=== PATIENT | male | born 1955 | race Caucasian/White ===

== ENCOUNTER 2018-11-28 17:49 | Observation (INO) | payer MEDICARE ==
[~2018-11-28] VITALS: Ht 190.5 cm; Wt 146.9 kg
[~2018-11-28 17:49] MED LIST: METF500 PO
[2018-11-28 18:33] LABS: BASOPHILS ABSOLUTE AUTO 0.04 K/mm3 (0.00-0.23); BASOPHILS PERCENT AUTO 0 % (0-2); EOSINOPHILS PERCENT AUTO 1 % (0-6); Hematocrit 45.3 % (37.0-53.0); Hemoglobin 15.4 g/dL (13.5-17.5); IMMATURE GRAN ABSOLUTE AUTO 0.08 K/mm3 (0.00-0.10); IMMATURE GRAN PERCENT AUTO 1 % (0-1); LYMPHOCYTES ABSOLUTE AUTO 3.53 K/mm3 (0.84-5.20); LYMPHOCYTES PERCENT AUTO 28 % (21-46); MONOCYTES ABSOLUTE AUTO 1.05 K/mm3 (0.16-1.47); MONOCYTES PERCENT AUTO 8 % (4-13); Mean Corpuscular HGB 30.3 pg (26.0-34.0); Mean Corpuscular Volume 89 fL (80-100); Mean Platelet Volume 12.1 fL (9.1-12.4); NEUTROPHILS ABSOLUTE AUTO 7.63 K/mm3 (1.96-9.15); NEUTROPHILS PERCENT AUTO 62 % (41-73); Platelet Count 230 K/mm3 (150-400); RDW Coefficient Variation 14.9 % (11.7-14.2); RDW Standard Deviation 49.1 fL (35.1-46.3); Red Blood Cell Count 5.08 M/mm3 (4.30-5.90); White Blood Cell Count 12.43 K/mm3 (4.00-11.30)
[2018-11-28 18:56] LABS: Albumin, Blood 4.4 g/dL (3.4-5.0); Albumin/Globulin Ratio 1.4 (0.8-1.8); Beta-hydroxybutyrate 5.8 mg/dL (0.2-2.8); Bilirubin, Total 0.7 mg/dL (0.1-1.0); Bun/Creatinine Ratio 21.9 (12.0-20.0); Calcium, Blood 9.4 mg/dL (8.5-10.1); Creatinine, Blood 1.46 mg/dL (0.60-1.20); Globulin, Blood 3.2 g/dL (2.2-4.0); Potassium, Blood 3.9 mmol/L (3.5-5.5); Total Protein, Blood 7.6 g/dL (6.4-8.2)
[2018-11-28] MEDS ORDERED: JARDIANCE25 MG PO (23:45)
[2018-11-28] MEDS ORDERED: GLIP10ER PO (23:45)
[2018-11-28] MEDS ORDERED: Percocet 5-3251 EACH PO (23:45)
[2018-11-28] MEDS ORDERED: ELIQUIS5 MG PO (23:46)
[2018-11-28] MEDS ORDERED: LIRA0.6P (23:46)
[2018-11-28] MEDS ORDERED: ALLO100 PO (23:46)
[2018-11-28] MEDS ORDERED: PREG150 PO (23:46)
[2018-11-29] MEDS ORDERED: TORSE20 PO (01:22)
[2018-11-29] MEDS ORDERED: Pacerone100 MG PO (01:22)
--- NOTE | 2018-11-29 06:00 | NUR ---
SHIFT SUMMARY PT IN ROOM IN RECLINER SITTING UP. PT SLEPT FOR SHORT PERIOD OF TIME AFTER ARRIVAL. PT WORE CPAP AND TOLERATED WELL. NO ACUTE CHANGES IN STATUS SINCE ARRIVAL. AMIODARONE WAS INFUSING IN PIV AT 0.5MG/HR, CURRENTLY STOPPED D/T IV PAINFUL. 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 PT IS SLIGHTLY AGGITATED THIS AM, REPORTS "I WAS SUPPOSED TO GO CAMPING THIS WEEKENED, I DON'T WANT TO BE HERE". PT HAS BEEN EDUCATED ABOUT NEED TO CONTROL HR, HR INCREASES TO 130'S-150'S W/ EXERTION. RESP EVEN UNLBOARED ON RA W/ SATS >92%. PT IS INDEPENDENT IN ROOM, AND CALLS APPROPRIATELY FOR CORD MANAGMENT. CALL LIGHT IN REACH. AMIODARONE GTT WAS TITRATE TO 0.5MG/HR AT APROX 0440 THIS AM.
--- NOTE | 2018-11-29 07:48 | NUR ---
AM NOTE ASSUMED CARE OF PT APROX 0700, PT IS A&Ox4 AND IND IN THE ROOM. PT WAS ADMITTED FOR PROX AFIB RVR. PT IS ON AMNIO GTT AT 16.6 MLS/HR. MONITOR INTACT, AFIB IN THE 100'S BUT TACHS UP TO THE 120'S-140'S WITH ACTIVITY. PT'S VS ARE STABLE. L/S CLEAR T/O. BT PRESENT AND HYPERACTIVE, ABD IS SOFT AND NONTENDER TO PALP. 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
[2018-11-29 08:52] LABS: BASOPHILS ABSOLUTE AUTO 0.05 K/mm3 (0.00-0.23); BASOPHILS PERCENT AUTO 1 % (0-2); EOSINOPHILS ABSOLUTE AUTO 0.16 K/mm3 (0.00-0.68); EOSINOPHILS PERCENT AUTO 2 % (0-6); Hematocrit 43.7 % (37.0-53.0); Hemoglobin 14.1 g/dL (13.5-17.5); IMMATURE GRAN ABSOLUTE AUTO 0.04 K/mm3 (0.00-0.10); IMMATURE GRAN PERCENT AUTO 0 % (0-1); LYMPHOCYTES ABSOLUTE AUTO 3.08 K/mm3 (0.84-5.20); LYMPHOCYTES PERCENT AUTO 33 % (21-46); MONOCYTES PERCENT AUTO 11 % (4-13); Mean Corpuscular HGB 29.9 pg (26.0-34.0); Mean Corpuscular HGB Conc 32.3 g/dL (31.5-36.5); Mean Corpuscular Volume 93 fL (80-100); Mean Platelet Volume 12.2 fL (9.1-12.4); NEUTROPHILS ABSOLUTE AUTO 5.02 K/mm3 (1.96-9.15); NEUTROPHILS PERCENT AUTO 54 % (41-73); Platelet Count 195 K/mm3 (150-400); RDW Coefficient Variation 15.1 % (11.7-14.2); Red Blood Cell Count 4.71 M/mm3 (4.30-5.90); White Blood Cell Count 9.35 K/mm3 (4.00-11.30)
[2018-11-29 09:08] LABS: Albumin, Blood 3.9 g/dL (3.4-5.0); Anion Gap 5 mmol/L (6-16); Blood Urea Nitrogen 27 mg/dL (8-24); Bun/Creatinine Ratio 22.1 (12.0-20.0); CO2, Blood 27 mmol/L (21-32); Calcium, Blood 8.5 mg/dL (8.5-10.1); Chloride, Blood 108 mmol/L (98-108); Creatinine, Blood 1.22 mg/dL (0.60-1.20); Glomerular Filtration Rate >60 (60-); Glucose, Blood 192 mg/dL (70-99); Potassium, Blood 4.2 mmol/L (3.5-5.5); Sodium, Blood 140 mmol/L (136-145)
--- NOTE | 2018-11-29 14:34 | NUR ---
Patient is lying in bed and alert. Patient is vocalizing his frustrations about his heart issues and how the problems never occur at an opportune time. Patient states that he would love to go home now but understands the process. I listen to patient, explore patient's belief system, provide pastoral school counsellor and provide prayer. Patient responds well and voices appreciation for the parayer.
--- NOTE | 2018-11-29 14:48 | NUR ---
1432: PT CONVERTED TO SINUS RHYTHM, HR [id number]. PT VERY EAGER TO GO HOME. DR LOZADA NOTIFIED AND STATES SHE WILL PLACE DISCHARGE ORDERS.
--- NOTE | 2018-11-29 15:01 | NUR ---
PT UPDATE... AT 1439 PT CONVERTED FROM AFIB TO NSR IN THE 60'S. PT'S VS STABLE. PROVIDER NOTIFED AND D/C ORDERS OBTAINED. WILL CONTINUE TO MONITOR. N
[2018-11-29] MEDS ORDERED: CARV3.125 PO (16:39)
== END 2018-11-29 17:25 | disposition home or self-care (01) ==
LOC: ER 17:49 → ERHOLD 17:50 → ICUE 17:50
PROVIDERS: Family Medicine; Physician Assistant; ADMIT Hospitalist
DX: I48.0 Paroxysmal atrial fibrillation (principal); I50.32 Chronic diastolic (congestive) heart failure; M10.9 Gout, unspecified; R79.89 Other specified abnormal findings of blood chemistry; E11.42 Type 2 diabetes mellitus with diabetic polyneuropathy; M19.90 Unspecified osteoarthritis, unspecified site; E66.9 Obesity, unspecified; Z79.899 Other long term (current) drug therapy; Z79.84 Long term (current) use of oral hypoglycemic drugs; Z79.01 Long term (current) use of anticoagulants
CPT/HCPCS: 36415; 71046; 80053; 80069; 82010; 82947; 83735; 83880; 84443; 84484; 85025; 93005; 93010; 94660; 96361; 96365; 96366; 96375; 99285-25; C1751; C8929; G0378; J0282; J2405; J7030; J7060; Q9957

== ENCOUNTER → 2021-07-01 | Outpatient (CLI) | payer OTHER ==
[~2021-07-01] MED LIST changes: +ALLO100 PO; +CARV3.125 PO; +ELIQUIS5 MG PO; +GLIP10ER PO; +JARDIANCE25 MG PO; +LIRA0.6P; +PREG150 PO; +Pacerone100 MG PO; +Percocet 5-3251 EACH PO; +TORSE20 PO
[2021-07-01 12:42] LABS: Alanine Aminotransfer (ALT/SGP 51 U/L (12-78); Albumin, Blood 3.8 g/dL (3.4-5.0); Albumin/Globulin Ratio 1.4 (0.8-1.8); Alk Phos 83 U/L (40-126); Anion Gap 13 mmol/L (6-16); Aspartate Aminotrans (AST/SGOT 37 U/L (12-37); Bilirubin, Total 0.7 mg/dL (0.1-1.0); Blood Urea Nitrogen 13 mg/dL (8-24); Bun/Creatinine Ratio 14.8 (12.0-20.0); CO2, Blood 22 mmol/L (21-32); Calcium, Blood 8.5 mg/dL (8.5-10.1); Chloride, Blood 106 mmol/L (98-108); Creatinine, Blood 0.88 mg/dL (0.60-1.20); Globulin, Blood 2.8 g/dL (2.2-4.0); Glomerular Filtration Rate >60 (60-); Glucose, Blood 117 mg/dL (70-99); Potassium, Blood 4.4 mmol/L (3.5-5.5); Sodium, Blood 141 mmol/L (136-145); Total Protein, Blood 6.6 g/dL (6.4-8.2)
[2021-07-01 12:43] LABS: BASOPHILS ABSOLUTE AUTO 0.02 K/mm3 (0.00-0.23); BASOPHILS PERCENT AUTO 0 % (0-2); EOSINOPHILS ABSOLUTE AUTO 0.01 K/mm3 (0.00-0.68); EOSINOPHILS PERCENT AUTO 0 % (0-6); Hemoglobin 14.9 g/dL (13.5-17.5); IMMATURE GRAN ABSOLUTE AUTO 0.05 K/mm3 (0.00-0.10); IMMATURE GRAN PERCENT AUTO 1 % (0-1); LYMPHOCYTES ABSOLUTE AUTO 1.81 K/mm3 (0.84-5.20); LYMPHOCYTES PERCENT AUTO 34 % (21-46); MONOCYTES PERCENT AUTO 11 % (4-13); Mean Corpuscular HGB 29.3 pg (26.0-34.0); Mean Corpuscular HGB Conc 33.9 g/dL (31.5-36.5); Mean Corpuscular Volume 87 fL (80-100); Mean Platelet Volume 12.5 fL (9.1-12.4); NEUTROPHILS ABSOLUTE AUTO 2.82 K/mm3 (1.96-9.15); NEUTROPHILS PERCENT AUTO 53 % (41-73); Platelet Count 134 K/mm3 (150-400); RDW Standard Deviation 47.5 fL (35.1-46.3); Red Blood Cell Count 5.08 M/mm3 (4.30-5.90); White Blood Cell Count 5.31 K/mm3 (4.00-11.30)
== END ==
LOC: LAB SHORT 12:29
PROVIDERS: Chiropractor
DX: U07.1 COVID-19 (principal)
CPT/HCPCS: 80053; 85025; 85379